=== PATIENT | male | born 1945 | race African-American/Black ===

== ENCOUNTER 2017-04-12 09:11 | Outpatient (CLI) | payer MEDICARE, MEDICAID ==
[~2017-04-12 09:11] MED LIST: AMLODIPINE BESY10 MG ORAL; ASPIRIN81 MG ORAL; GABAPENTIN300 MG ORAL; OXYCODONE HCL10 MG ORAL; TRAZODONE HCL150 MG ORAL; XARELTO10 MG ORAL
--- NOTE | 2017-04-15 08:09 | Diagnostic Imaging Report ---
Clinical Indication: Right chest wall pain Technique: Spiral acquisitions obtained through the chest. No IV contrast utilized, reason not stated. Multiplanar reconstructions generated. Total dose length product 643 mGycm. CTDIvol(s) 14 mGy. Dose reduction achieved using automated exposure control Comparison: None Findings:Reticular and linear opacities are seen involving the right middle lobe and right lower lobe. More confluent opacities are seen in the inferolateral right lower lobe, the posterior medial right lower lobe, and in the right middle lobe There is some associated bronchiectasis. Hyperinflation and bullous changes are seen in the lungs bilaterally, in all lobes but predominantly the upper lobes. Scarring and volume loss in a slight degree of atelectasis are seen in the left lower lobe. No definite acute infiltrates. No effusions, masses, or nodules. Basilar parenchymal changes are more extensive than those demonstrated on a prior abdomen pelvis CT of 05/08/2014. The heart is borderline enlarged. There is anterior wall pericardial effusion, measures 8 mm thick. There are numerous prominent mediastinal lymph nodes. The main pulmonary artery is ectatic, measures 3.8 cm in diameter. Calcifications are seen in the prevascular space. The included thyroid is unremarkable. There are are numerous prominent although not frankly enlarged bilateral axillary nodes. The bones demonstrated a wedge compression fracture deformity of the T6 vertebral body resulting in approximately 40% height loss. There is more questionable fracture of T7 vertebral body. There are mild degenerative changes of the thoracic spine The included upper abdominal anatomy is remarkable for calcifications within or adjacent to the pancreas, also demonstrated on abdomen pelvis CT scan of 05/08/2014. Left renal cyst is again demonstrated. 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 Impression: Confluent opacities within the right lower lobe and right middle lobe. Suspect on the basis of areas of confluent scarring, particularly given the presence of associated bronchiectasis, but acute infiltrates not excludable Other areas of probable scarring bilaterally COPD changes Ectatic main pulmonary artery, suggestive of but not diagnostic for pulmonary to hypertension Borderline cardiomegaly Prominent mediastinal and axillary lymph nodes, adenopathy not excludable. T6 vertebral body compression fracture deformity. Age indeterminate but suspect evident on prior esophagram dated 05/11/2014. Consider MRI for further evaluation if this is considered clinically relevant Other findings as noted, including duodenal diverticulum, left renal cyst The CT scanner at [facility] is accredited by the [employer] and the scans are performed using protocols designed to limit radiation exposure to as low as reasonably achievable to attain images of sufficient resolution adequate for diagnostic evaluation.
== END 2017-04-12 11:11 | disposition home or self-care (01) ==
LOC: CAT 09:11
DX: R07.9 Chest pain, unspecified (principal); R91.1 Solitary pulmonary nodule; N28.1 Cyst of kidney, acquired; K57.10 Diverticulosis of small intestine without perforation or abscess without bleeding
CPT/HCPCS: 71250

== ENCOUNTER 2017-05-27 10:48 | Emergency (ER) | payer MEDICARE, MEDICAID ==
[~2017-05-27] VITALS: Ht 188 cm; Wt 79.4 kg
[2017-05-27 11:00] VITALS: BP 166/101
[2017-05-27] MEDS ORDERED: Morphine Sulfate 4mg/ml Inj IVP ONE (11:00)
--- NOTE | 2017-05-27 11:27 | Diagnostic Imaging Report ---
Indication: Dyspnea Comparison: 08/16/16 A single view chest radiograph was obtained. Findings: Interstitial edema suspected with some basilar atelectasis versus infiltrate. Heart is enlarged. Bones are osteopenic. Impression: Suspect mild interstitial edema. Pneumonia not entirely excludable at the lung bases. Please correlate clinically
[2017-05-27 12:02] LABS: MEAN CORPUSCULAR HEMOGLOBIN 31.4 PG (27.0-31.0); MEAN CORPUSCULAR HGB CONC 33.3 G/DL (32.0-36.0); MEAN CORPUSCULAR VOLUME 94 FL (80-99); MEAN PLATELET VOLUME 6.4 FL (6.5-10.1); PLATELET COUNT 172 K/UL (150-450); RED BLOOD COUNT 4.17 M/UL (4.70-6.10); RED CELL DISTRIBUTION WIDTH 13.4 % (11.6-14.8); WHITE BLOOD COUNT 5.7 K/UL (4.8-10.8)
[2017-05-27 12:13] LABS: INR 1.1 (0.9-1.1); PROTHROMBIN TIME 11.1 SEC (9.30-11.50)
[2017-05-27 12:29] LABS: BAND NEUTROPHILS % (MANUAL) 0 % (0-8); BASOPHILS % (MANUAL) 0 % (0-2); EOSINOPHILS % (MANUAL) 0 % (0-3); LYMPHOCYTES % (MANUAL) 5 % (20-45); NEUTROPHILS % (MANUAL) 89 % (45-75); PLATELET ESTIMATE ADEQUATE; PLATELET MORPHOLOGY NORMAL; TOTAL CELLS COUNTED 100; TROPONIN I < 0.30 ng/mL (<=0.30)
[2017-05-27 12:42] LABS: ALANINE AMINOTRANSFERASE 15 U/L (3-41); ALBUMIN/GLOBULIN RATIO 0.6 (1.0-2.7); ANION GAP 13 (5-15); ASPARTATE AMINO TRANSFERASE 65 U/L (5-40); CALCIUM 9.1 mg/dL (8.6-10.2); CARBON DIOXIDE 27 mEQ/L (20-30); CHLORIDE 98 mEQ/L (98-107); CREATININE 1.4 mg/dL (0.7-1.2); HEMOLYSIS 0; POTASSIUM 4.7 mEQ/L (3.4-4.9); SODIUM 138 mEQ/L (135-145); TOTAL PROTEIN 8.1 g/dL (6.6-8.7)
[2017-05-27 13:05] VITALS: BP 169/103
--- NOTE | 2017-05-27 14:57 | Emergency Room Report ---
History of Present Illness General Chief Complaint: Pain Source: Patient, Medical Record Present Illness HPI Patient presents with R knee pain with h/o popliteal aneurism which has worsened gradually over the last 3 days. He was supposed to have surgery in September and was admitted at [facility] for chest pain and then lost to follow. He has been taking percocet 10 for the pain and ran out 3 days ago. The pain is severe, constant and worsened when he stands up. It radiates slightly both directions from the knee. He was sent here to have re-evaluation for possible surgery. No fevers, cough, chest pain, palpitations, NVD, dysuria, change in bowels. He has some muscle aches also. Depressed and slightly anxious, but no SI. No skin changes on leg or other rashes. H/O hepatitis C A flutter - previously on Xarelto H/O syncope related to a flutter - last admit Jul 2016. 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 Hx Cerebrovascular Accident: No Hx Seizures: No Hx Syncope: No Review of Systems All Other Systems: negative except mentioned in HPI Physical Exam Vital Signs Date Time Temp Pulse Resp B/P (MAP) Pulse Ox O2 Delivery O2 Flow Rate FiO2 05/27/17 10:50 97.0 105 28 190/95 95 Room Air Sp02 EP Interpretation: reviewed, normal General Appearance: well appearing, GCS 15, mild distress, thin Head: normocephalic Eyes: bilateral eye normal inspection, bilateral eye PERRL ENT: moist mucus membranes Neck: supple Respiratory: chest non-tender, lungs clear, normal breath sounds Cardiovascular #1: regular rate, rhythm, other - popliteal fullness, with tenderness, aneurism not appreciated clinically Cardiovascular #2: 2+ radial (R), 2+ dorsalis pedis (R), 2+ dorsalis pedis (L) Gastrointestinal: normal inspection, normal bowel sounds, non tender, no mass, non-distended, scaphoid Musculoskeletal: back normal, gait/station normal, normal range of motion, no calf tenderness, Bradley's Sign negative Neurologic: alert, oriented x3, grossly normal Psychiatric: anxious Skin: normal inspection, warm/dry Medical Decision Making Diagnostic Impression: Primary Impression: Popliteal aneurysm Additional Impressions: Opiate dependence Qualified Codes: F11.29 - Opioid dependence with unspecified opioid-induced disorder Renal insufficiency Elevated brain natriuretic peptide (BNP) level ER Course Patient with R knee pain with h/o popliteal aneurism. Ddx: opiate withdrawal, aneurysmal pain, gout amongst others. No evidence of DVT. Evaluation with labs , EKG. Treatment with analgesia. Contact vascular surgeon for plans. No evidence of rupture. Labs with normal WBC and H/H. Elevated creatinine, BNP and CPK. Patient did not give urine. CXR with increased oviedo bilat, but not overt pulm edema/chf. (Patient denies pulm symptoms.) EKG with NSR NSSTTW changes. Creats have been higher in past. Vascular surgeon, Dr. Mayer, office contacted him and he states he "dropped" the patient due to "someone else doing procedures" and "poor compliance". Dr. Duenas contacted and wants patient to come tomorrow to arrange for urgent vascular referral to Dr. Multani at [facility]. Patient requested crutches. Improved after pain medication. Discussion regarding "running out" of pain medicines. Also discussed plan to see Dr. Duenas tomorrow and if worsened, to go to [facility]. Patient stable for outpatient observation and treatment. Laboratory Tests Test 05/27/17 11:47 White Blood Count 5.7 K/UL (4.8-10.8) Red Blood Count 4.17 M/UL (4.70-6.10) L Hemoglobin 13.1 G/DL (14.2-18.0) L Hematocrit 39.2 % (42.0-52.0) L Mean Corpuscular Volume 94 FL (80-99) Mean Corpuscular Hemoglobin 31.4 PG (27.0-31.0) H Mean Corpuscular Hemoglobin Concent 33.3 G/DL (32.0-36.0) Red Cell Distribution Width 13.4 % (11.6-14.8) Platelet Count 172 K/UL (150-450) Mean Platelet Volume 6.4 FL (6.5-10.1) L Neutrophils (%) (Auto) % (45.0-75.0) Lymphocytes (%) (Auto) % (20.0-45.0) Monocytes (%) (Auto) % (1.0-10.0) Eosinophils (%) (Auto) % (0.0-3.0) Basophils (%) (Auto) % (0.0-2.0) Differential Total Cells Counted 100 Neutrophils % (Manual) 89 % (45-75) H Lymphocytes % (Manual) 5 % (20-45) L Monocytes % (Manual) 6 % (1-10) Eosinophils % (Manual) 0 % (0-3) Basophils % (Manual) 0 % (0-2) Band Neutrophils 0 % (0-8) Platelet Estimate Adequate Platelet Morphology Normal Red Blood Cell Morphology Normal Prothrombin Time 11.1 SEC (9.30-11.50) Prothrombin Time INR 1.1 (0.9-1.1) PTT 31 SEC (23-33) Sodium Level 138 mEQ/L (135-145) Potassium Level 4.7 mEQ/L (3.4-4.9) Chloride Level 98 mEQ/L (98-107) Carbon Dioxide Level 27 mEQ/L (20-30) Anion Gap 13 (5-15) Blood Urea Nitrogen 15 mg/dL (7-23) Creatinine 1.4 mg/dL (0.7-1.2) H Estimate Glomerular Filtration Rate mL/min (>60) Glucose Level 104 mg/dL (74-106) Calcium Level 9.1 mg/dL (8.6-10.2) Total Bilirubin 0.5 mg/dL (0.0-1.2) Aspartate Amino Transferase (AST) 65 U/L (5-40) H Alanine Aminotransferase (ALT) 15 U/L (3-41) Alkaline Phosphatase 87 U/L (40-129) Total Creatine Kinase 2027 U/L (38-174) H Troponin I < 0.30 ng/mL (<=0.30) Pro-B-Type Natriuretic Peptide 1488 pg/mL (0-125) H Total Protein 8.1 g/dL (6.6-8.7) Albumin 3.2 g/dL (3.5-5.2) L Globulin 4.9 g/dL Albumin/Globulin Ratio 0.6 (1.0-2.7) L EKG Diagnostic Results Rate: normal Rhythm: NSR ST Segments: no acute changes Rhythm Strip Diag. Results EP Interpretation: yes Rhythm: NSR, no PVC's, no ectopy Chest X-Ray Diagnostic Results Chest X-Ray Diagnostic Results : Chest X-Ray Ordered: Yes # of Views/Limited/Complete: 1 View Indication: Chest Pain EP Interpretation: Yes Interpretation: no effusion, no pneumothorax, other - increased oviedo Impression: Other Electronically Signed by: Electronically signed by Andrea Lazaro MD Last Vital Signs Date Time Temp Pulse Resp B/P (MAP) Pulse Ox O2 Delivery O2 Flow Rate FiO2 05/27/17 15:15 86 26 156/95 95 Room Air 05/27/17 13:05 98.4 Status: improved Disposition: HOME, SELF-CARE Condition: Improved Scripts Oxycodone Hcl/Acetaminophen 10-325 Mg Tablet (PERCOCET 10-325 MG TABLET*) 1 Each Tablet 1 TAB ORAL Q6H Y for For Pain, #10 TAB 0 Refills Prov: Andrea Lazaro M.D. 05/27/17 Referrals: NON PHYSICIAN (PCP) Andrea Lazaro M.D. May 27, 2017 14:57
[2017-05-27] MEDS ORDERED: PERCOCET 10-321 EACH ORAL (15:00)
[2017-05-27 15:15] VITALS: BP 156/95
--- NOTE | 2017-05-28 18:03 | Cardiology Report ---
APPROVED REPORT EKG Measurement Heart [id number] Normal sinus rhythm Nonspecific ST and T wave abnormality Prolonged QT Abnormal ECG
== END 2017-05-27 15:15 | disposition home or self-care (01) ==
LOC: EMR 12:26
DX: I72.4 Aneurysm of artery of lower extremity (principal); F11.20 Opioid dependence, uncomplicated; N28.9 Disorder of kidney and ureter, unspecified; R79.89 Other specified abnormal findings of blood chemistry; I10 Essential (primary) hypertension; I48.91 Unspecified atrial fibrillation; B19.20 Unspecified viral hepatitis C without hepatic coma
CPT/HCPCS: 36415; 71010; 80053; 82550; 83880; 84484; 85007; 85025; 85610; 85730; 86850; 86900; 86901; 93005; 96374; 96375; 99284; J2270; J2405

== ENCOUNTER 2018-08-29 13:00 | Outpatient (CLI) | payer MEDICARE, MEDICAID ==
[~2018-08-29 13:00] MED LIST changes: +PERCOCET 10-321 EACH ORAL
--- NOTE | 2018-08-30 15:49 | Diagnostic Imaging Report ---
Indication: Chest pain Technique: Continuous helical transaxial imaging of the chest was obtained from the thoracic inlet to the upper abdomen. No intravenous contrast was administered. Coronal 2-D reformats were also obtained. Total Dose length Product (DLP): 543.[address] Dose Index Volume (CTDIvol): 12.36 mGy Comparison: 04/12/2017 Findings: Small to moderate bilateral pleural effusions have developed. There is posterior basal atelectasis present. In general patchy infiltrates previously seen at the lung bases appear improved. Emphysematous changes with the several lucencies noted in the upper lobes again noted. The esophagus is moderately dilated. Consider achalasia. This is not evaluated well the current examination. Stomach is distended. Coronary and aortic calcifications are present. Several midthoracic vertebral body showed diminished height. Bones are osteopenic. IMPRESSION: Mild to moderate bilateral pleural effusions with associated posterior basal atelectasis. COPD/emphysema. Atherosclerotic disease Stable multilevel vertebral compression fracture deformities. Generalized osteopenia. The CT scanner at [facility] is accredited by the [employer] and the scans are performed using dose optimization techniques as appropriate to a performed exam including Automatic Exposure control.
== END 2018-08-29 15:00 | disposition home or self-care (01) ==
LOC: CAT 13:00
DX: R91.8 Other nonspecific abnormal finding of lung field (principal); R63.4 Abnormal weight loss; J43.9 Emphysema, unspecified; J90 Pleural effusion, not elsewhere classified; J98.11 Atelectasis
CPT/HCPCS: 71250

== ENCOUNTER 2018-08-29 13:13 | Outpatient (CLI) | payer MEDICARE | END 2018-08-29 15:13 | disposition home or self-care (01) | LOC: MERGE 13:13 → RAD 13:13 | DX: R19.03 Right lower quadrant abdominal swelling, mass and lump (principal) ==